=== PATIENT | female | born 1945 | race Caucasian/White ===

== ENCOUNTER 2017-01-10 08:48 | Day surgery (SDC) | payer MEDICARE ==
[2017-01-09 12:52] VITALS: BMI 35.0
[~2017-01-10 08:48] MED LIST: DEXAMETHASONE SOD PHOSPHATE 10 MG/ML 1 ML VIAL IV ONE; HEPARIN SODIUM,PORCINE 5,000 UNIT/ML 1 ML VIAL SQ ONE; HYDROmorphone 1 MG/ML 1 ML SYRINGE IVP PRN; LIDOCAINE 1% 20 ML VIAL (10MG/ML) FOR IV START INTRADERMA PRN; ONDANSETRON 4 MG/2 ML VIAL IVP ONE; ceFAZolin 2 GM in SODIUM CHLORIDE 0.9% 100 ML IVPB ONE
[2017-01-10] MEDS: LACTATED RINGERS 1,000 ML IV SCH (09:01)
[2017-01-10 09:24] LABS: Anisocytosis Slight; Basophils # (A) 0.1 k/uL (0-0.2); Basophils % (A) 1 %; CH 19.2; CHCM 27.4; Eosinophils # (A) 1.5 k/uL (0-0.7); Eosinophils % (A) 15 %; HCT 28.7 % (34.0-46.0); HDW 4.35; Hypochromasia Marked; Luc # (Auto) 0.19; Luc % (Auto) 2; Lymphocytes # (A) 2.2 k/uL (1.0-4.8); Lymphocytes % (A) 22 %; MCH 19.7 pg (25.0-35.0); MCHC 27.9 g/dL (31.0-37.0); MCV 70.9 fL (80.0-100.0); Mean Platelet Volume 6.8; Microcytosis Marked; Monocytes # (A) 0.4 k/uL (0-1.0); Monocytes % (A) 4 %; Neutrophils % (A) 57 %; Poikilocytosis Moderate; RBC 4.05 m/uL (3.80-5.40); RDW 18.5 % (11.5-15.5); WBC 10.4 k/uL (3.8-10.6); WBC (Perox) 10.31
[2017-01-10] MEDS ORDERED: PROPOFOL 10 MG/ML 20 ML VIAL IV ONE (09:29)
[2017-01-10] MEDS ORDERED: LIDOCAINE 1% INJ 10MG/ML (20 ML MDV) ONE (09:29)
[2017-01-10] MEDS ORDERED: GLYCOPYRROLATE 0.2 MG/ML 2 ML VIAL ONE (09:29)
[2017-01-10] MEDS ORDERED: NEOSTIGMINE 1 MG/ML 10 ML VIAL ONE (09:29)
[2017-01-10] MEDS ORDERED: ROCURONIUM BROMIDE 10 MG/ML 10 ML VIAL IV ONE (09:29)
[2017-01-10] MEDS ORDERED: fentaNYL (PF) 50 MCG/ML 2 ML AMP ONE (09:29)
[2017-01-10] MEDS ORDERED: MIDAZOLAM 2 MG/2 ML VIAL ONE (09:29)
--- NOTE | 2017-01-10 09:35 | P.GSHP ---
History of Present Illness H&P Date: 01/10/17 Chief Complaint: GERD This is a 71-year-old female who's had long-standing problems with GERD. She's had a recent EGD which shows evidence of a hiatal hernia and acid reflux.The patient has had long-standing problems with reflux esophagitis. The patient underwent recent EGD is found have evidence of esophagitis. Patient has been well informed on the procedure of laparoscopic Carlita fundoplication. The patient is aware the risk of the conversion to the open procedure, risk of injury to the stomach, liver and spleen. The patient is also a risk of recurrent GERD and dysphagia symptoms. The patient understands there is a postoperative diet of full liquids for 2 weeks after surgery. Past Medical History Past Medical History: GERD/Reflux, Musculoskeletal Disorder Additional Past Medical History / Comment(s): HIATAL HERNIA, GLAUCOMA, BACK PAIN - L-4 & L-5 DDD ., STATES BORDERLINE ANEMIA. History of Any Multi-Drug Resistant Organisms: None Reported Past Surgical History: Cholecystectomy Additional Past Surgical History / Comment(s): CATARACTS, SURGERY FOR REMOVAL OF BABY., EGD AND COLONOSCOPY. Past Anesthesia/Blood Transfusion Reactions: Previous Problems w/ Anesthesia Additional Past Anesthesia/Blood Transfusion Reaction / Comment(s): RECEIVED 2 UNITS OF BLOOD AFTER GALL BLADDER SURGERY. (NO REACTION). STATES DIFFICULTY WAKING UP AFTER CATARACT SURGERY. Past Psychological History: No Psychological Hx Reported Additional Psychological History / Comment(s): LIVES WITH HANDICAPPED SON. Smoking Status: Heavy tobacco smoker Past Alcohol Use History: None Reported Additional Past Alcohol Use History / Comment(s): SMOKES 1 PPD. SMOKING FOR 60 YEARS Past Drug Use History: None Reported - Past Family History Mother Family Medical History: Cancer Additional Family Medical History / Comment(s): ADENOCARCINOMA Brother(s) Family Medical History: Cancer Additional Family Medical History / Comment(s): BROTHER #1 OF ADENOCARCINOMA,. bROTHER #2 HAS CANCER ON THE OUTER COLON. Sister(s) Family Medical History: Cancer Additional Family Medical History / Comment(s): SISTER #1 INVASIVE DUCTAL BREAST CANCER. SISTER #2 ADDENO SQUAMOUS CARCINOMA Daughter(s) Family Medical History: Cancer Additional Family Medical History / Comment(s): DAUGHTER #1 DYSPLASIA INSITU CARCINOMA. DAUGHTER #2 MELANOMA. DAUGHTER #3 SQUAMOUS CELL CANCER Medications and Allergies Home Medications Medication Instructions Recorded Confirmed Type Aspirin [Adult Low Dose Aspirin EC] 81 mg PO DAILY 01/09/17 01/10/17 History Dantrolene [Dantrium] 25 mg PO QID 01/09/17 01/10/17 History Omeprazole 20 mg PO DAILY 01/09/17 01/10/17 History Allergies Allergy/AdvReac Type Severity Reaction Status Date / Time pregabalin [From Lyrica] AdvReac Unknown CANT SEE Verified 01/10/17 08:56 Surgical - Exam Vital Signs Temp Pulse Resp BP Pulse Ox 98.2 F 83 16 154/75 97 01/10/17 08:56 01/10/17 08:56 01/10/17 08:56 01/10/17 08:56 01/10/17 08:56 - General well developed, no distress - Eyes PERRL - ENT normal pinna - Neck no masses - Respiratory normal expansion - Cardiovascular Rhythm: regular - Abdomen Abdomen: soft, non tender Assessment and Plan Plan: GERD. We'll perform EGD colonoscopy
[2017-01-10] MEDS ORDERED: BUPIVACAINE-EPI 0.5%-1:200,000 10 ML VIAL SQ ONE (09:58)
[2017-01-10] MEDS ORDERED: BUPIVACAINE (PF) 0.5% 30 ML VIAL SQ ONE (09:58)
[2017-01-10] MEDS ORDERED: ONDANSETRON 4 MG/2 ML VIAL IVP PRN (10:56)
[2017-01-10] MEDS ORDERED: HYDROmorphone 1 MG/ML 1 ML SYRINGE IVP PRN (10:56)
--- NOTE | 2017-01-10 10:56 | P.OP ---
Date of Procedure: 01/10/17 Preoperative Diagnosis: GERD Large hiatal hernia Postoperative Diagnosis: Paraesophageal hernia Procedure(s) Performed: Laparoscopic repair of paraesophageal hernia Laparoscopic Carlita fundoplication Anesthesia: FAVIO Surgeon: Adan Pedroza Estimated Blood Loss (ml): 5 Pathology: none sent Condition: stable Disposition: PACU Description of Procedure: The patient was placed on the operating table in the supine position. The patient received general anesthesia. And was placed in dorsal lithotomy position. The patient was prepped and draped in the usual sterile fashion. The skin incision sites were anesthetized with 1% local Xylocaine. The skin was incised in the left periumbilical area and then using a blade less 5 mm trocar under direct visualization panel cavity was entered. After adequate insufflation the laparoscope was then placed into the peritoneal cavity. Next a 5 mm trochars placed in the right epigastric position. Another 5 millimeter trocar the right lateral position. Another 5 millimeter trocar in the left lateral position a 5 mm trocar is placed in the left epigastric position. And then the initial 5 mm trocar was exchanged for a 10 mm trocar. The left lateral lobe liver was retracted. The hernia was seen. The patient had a large hiatal hernia. It appeared to be a paraesophageal hernia with the stomach herniated above the GE junction. The crural defect was then dissected using the Harmonic scissors device. A 360 crural dissection was performed the esophagus stomach was reduced back into the peritoneal Cavity. The crural defect was then closed using 2-0 Ethibond suture. Next the fundus of the stomach was mobilized using the [place] scissors device. and then a 58-Azeri bougie dilator was placed oropharynx passed into the esophagus and stomach the fundal plication wrap was then performed by grasping the fundus posteriorly and bringing it around the esophagus and stomach fundoplication was then performed using 2-0 Ethibond suture. Next, the diaphragmatic repair was buttressed with bio a absorbable mesh. This was secured with 2-0 Ethibond suture. Care was taken that the fundal location rested over top of the intra-abdominal esophagus. There was no injury seen to the stomach or esophagus. The dilator was then withdrawn. The abdomen was irrigated there is no bleeding seen. The trochars were then withdrawn and then skin incision sites were closed using 3-0 Monocryl suture Steri-Strips are applied. Patient thought procedure well and sent to recovery room in stable condition.
[2017-01-10] MEDS: METOCLOPRAMIDE 5 MG/ML 2 ML VIAL IVP SCH ×3 (13:00→23:37)
[2017-01-10] MEDS: D5-0.45% NACL WITH KCL 20MEQ/L 1,000 ML IV SCH ×2 (13:04→20:19)
--- NOTE | 2017-01-10 14:20 | P.CONS ---
History of Present Illness - Reason for Consult Consult date: 01/10/17 Preoperative complication management - History of Present Illness Patient is a very pleasant 71-year-old female with history of gastroesophageal reflux disease and hiatal hernia admitted for Mrs. fundoplication. Patient's is successfully underwent surgery still coming out of anesthesia denied any significant pain or nausea at this time. Patient denied any fever, chills, nausea, vomiting but as mentioned above not a real good historian as she just coming out of anesthesia and still drowsy Review of Systems REVIEW OF SYSTEMS: CONSTITUTIONAL: No fever, no malaise, no fatigue. HEENT: No recent visual problems or hearing problems. Denied any sore throat. CARDIOVASCULAR: No chest pain, orthopnea, PND, no palpitations, no syncope. PULMONARY: No shortness of breath, no cough, no hemoptysis. GASTROINTESTINAL: No diarrhea, no nausea, no vomiting, no abdominal pain. Normoactive bowel sounds. NEUROLOGICAL: No headaches, no weakness, no numbness. HEMATOLOGICAL: Denies any bleeding or petechiae. GENITOURINARY: Denies any burning micturition, frequency, or urgency. MUSCULOSKELETAL/RHEUMATOLOGICAL: Denies any joint pain, swelling, or any muscle pain. ENDOCRINE: Denies any polyuria or polydipsia. The rest of the 14-point review of systems is negative. Past Medical History Past Medical History: GERD/Reflux, Musculoskeletal Disorder Additional Past Medical History / Comment(s): HIATAL HERNIA, GLAUCOMA, BACK PAIN - L-4 & L-5 DDD ., STATES BORDERLINE ANEMIA. History of Any Multi-Drug Resistant Organisms: None Reported Past Surgical History: Cholecystectomy Additional Past Surgical History / Comment(s): CATARACTS, SURGERY FOR REMOVAL OF BABY., EGD AND COLONOSCOPY. Past Anesthesia/Blood Transfusion Reactions: Previous Problems w/ Anesthesia Additional Past Anesthesia/Blood Transfusion Reaction / Comm: RECEIVED 2 UNITS OF BLOOD AFTER GALL BLADDER SURGERY. (NO REACTION). STATES DIFFICULTY WAKING UP AFTER CATARACT SURGERY. Past Psychological History: No Psychological Hx Reported Additional Psychological History / Comment(s): LIVES WITH HANDICAPPED SON. Smoking Status: Heavy tobacco smoker Past Alcohol Use History: None Reported Additional Past Alcohol Use History / Comment(s): SMOKES 1 PPD. SMOKING FOR 60 YEARS Past Drug Use History: None Reported - Past Family History Mother Family Medical History: Cancer Additional Family Medical History / Comment(s): ADENOCARCINOMA Brother(s) Family Medical History: Cancer Additional Family Medical History / Comment(s): BROTHER #1 OF ADENOCARCINOMA,. bROTHER #2 HAS CANCER ON THE OUTER COLON. Sister(s) Family Medical History: Cancer Additional Family Medical History / Comment(s): SISTER #1 INVASIVE DUCTAL BREAST CANCER. SISTER #2 ADDENO SQUAMOUS CARCINOMA Daughter(s) Family Medical History: Cancer Additional Family Medical History / Comment(s): DAUGHTER #1 DYSPLASIA INSITU CARCINOMA. DAUGHTER #2 MELANOMA. DAUGHTER #3 SQUAMOUS CELL CANCER Medications and Allergies Home Medications Medication Instructions Recorded Confirmed Type Aspirin [Adult Low Dose Aspirin EC] 81 mg PO DAILY 01/09/17 01/10/17 History Dantrolene [Dantrium] 25 mg PO QID 01/09/17 01/10/17 History Omeprazole 20 mg PO DAILY 01/09/17 01/10/17 History Allergies Allergy/AdvReac Type Severity Reaction Status Date / Time pregabalin [From Lyrica] AdvReac Unknown CANT SEE Verified 01/10/17 08:56 Physical Exam Vitals: Vital Signs Temp Pulse Resp BP Pulse Ox 01/10/17 12:00 87 16 133/66 97 01/10/17 11:45 86 16 138/58 100 01/10/17 11:30 85 16 154/50 100 01/10/17 11:15 87 16 157/70 100 01/10/17 11:00 86 16 157/86 100 01/10/17 10:55 97.7 F 84 14 151/62 100 01/10/17 08:56 98.2 F 83 16 154/75 97 Intake and Output 01/09/17 01/10/17 01/10/17 22:59 06:59 14:59 Intake Total 400 Output Total 10 Balance 390 Intake: IV 400 Output: Estimated Blood Loss 10 PHYSICAL EXAMINATION: GENERAL: The patient is alert and oriented x3, not in any acute distress. Well developed, well nourished. Drowsy from anesthesia HEENT: Pupils are round and equally reacting to light. EOMI. No scleral icterus. No conjunctival pallor. Normocephalic, atraumatic. No pharyngeal erythema. No thyromegaly. CARDIOVASCULAR: S1 and S2 present. No murmurs, rubs, or gallops. PULMONARY: Chest is clear to auscultation, no wheezing or crackles. ABDOMEN: Soft, nontender, nondistended, normoactive bowel sounds. No palpable organomegaly. MUSCULOSKELETAL: No joint swelling or deformity. EXTREMITIES: No cyanosis, clubbing, or pedal edema. NEUROLOGICAL: Gross neurological examination did not reveal any focal deficits. SKIN: No rashes. Results CBC & Chem 7: 01/10/17 09:12 Labs: Abnormal Lab Results - Last 24 Hours (Table) 01/10/17 Range/Units 09:12 Hgb 8.0 L (11.4-16.0) gm/dL Hct 28.7 L (34.0-46.0) % MCV 70.9 L (80.0-100.0) fL MCH 19.7 L (25.0-35.0) pg MCHC 27.9 L (31.0-37.0) g/dL RDW 18.5 H (11.5-15.5) % Plt Count 501 H (150-450) k/uL Eosinophils # 1.5 H (0-0.7) k/uL Assessment and Plan Plan: #1 postoperative day 0 status post Carlita fundoplication: Pain management as per primary service and nausea management as per primary service patient does not appear to have any significant complications no further recommendation from medicine perspective. #2 muscle spasms for which patient isn't answering which can be continued #3 gastroesophageal reflux disease Thank you for letting me partis but in this patient's care will continue to follow the patient on as-needed basis.
--- NOTE | 2017-01-10 15:28 | FL ---
Single contrast esophagram EXAMINATION TYPE: FL esophagus cervic/pharynx DATE OF EXAM: 01/10/2017 3:23 PM COMPARISON: NONE CLINICAL HISTORY: Status post Martin fundoplication 6 images submitted.55 sec fluoro, 50ML omni 350. The patient ingested contrast without difficulty. Noted are changes of Martin fundoplication. There is no evidence for leak or obstruction. Mild stasis of contrast within the distal esophagus related t o edema at the surgical site. Small amount of residual contrast within the distal esophagus. IMPRESSION: Post-surgical change of Martin fundoplication without evidence for leak or obstruction. Mild stasis of contrast distal esophagus as noted.
[2017-01-10] MEDS: DANTROLENE 25 MG CAP PO SCH ×2 (17:51→21:51)
[2017-01-10] MEDS: FAMOTIDINE 20 MG/2 ML VIAL IV SCH (20:20)
[2017-01-11] MEDS: METOCLOPRAMIDE 5 MG/ML 2 ML VIAL IVP SCH ×2 (05:52→12:36)
[2017-01-11] MEDS: D5-0.45% NACL WITH KCL 20MEQ/L 1,000 ML IV SCH ×2 (05:52→12:35)
[2017-01-11] MEDS: LACTATED RINGERS 1,000 ML IV SCH (07:04)
[2017-01-11 08:09] VITALS: BP 120/62; PULSE 69; RESP 17; TEMP 98
[2017-01-11] MEDS ORDERED: ENOXAPARIN 40 MG/0.4 ML SYRINGE SQ SCH (09:00)
[2017-01-11] MEDS: FAMOTIDINE 20 MG/2 ML VIAL IV SCH (09:53)
[2017-01-11] MEDS: DANTROLENE 25 MG CAP PO SCH ×2 (09:53→14:12)
--- NOTE | 2017-01-11 12:34 | P.DS ---
Providers Expected date of discharge: 01/11/17 Attending physician: Adan Pedroza Consults: 01/10/17 10:56 Consult Physician Routine Consulting Provider: Darien Enriquez Consult Reason/Comments: Medical management Do you want consulting provider notified?: Yes Hospital Course: This is a 71-year-old female who's had long-standing problems with GERD. She's had a recent EGD which shows evidence of a hiatal hernia and acid reflux.The patient has had long-standing problems with reflux esophagitis. The patient underwent recent EGD is found have evidence of esophagitis. Patient has been well informed on the procedure of laparoscopic Carlita fundoplication. The patient is aware the risk of the conversion to the open procedure, risk of injury to the stomach, liver and spleen. The patient is also a risk of recurrent GERD and dysphagia symptoms. The patient understands there is a postoperative diet of full liquids for 2 weeks after surgery. on jan 10 underwent Laparoscopic Carlita fundoplication for a large hiatal hernia and symptomatic esophageal reflux postop was tolerating clear liquid up ambulating in the hallway passing gas rectally no stool anxious for discharge understood needing to be on full liquids for 2 weeks until seen in a follow-up visit Impression discharge diagnosis Status post January 10 Laparoscopic Carlita fundoplication for a large hiatal hernia and esophageal reflux disease Paraesophageal hernia Symptomatic esophageal reflux disease failed outpatient treatment The above impression and plan of care have been discussed and directed by signing physician. Roselia Rojo nurse practitioner acting as scribe for signing physician. Plan - Discharge Summary New Discharge Prescriptions: Discontinued Omeprazole 20 mg PO DAILY No Action Dantrolene [Dantrium] 25 mg PO QID Aspirin [Adult Low Dose Aspirin EC] 81 mg PO DAILY Discharge Medication List Aspirin [Adult Low Dose Aspirin EC] 81 mg PO DAILY 01/09/17 [History] Dantrolene [Dantrium] 25 mg PO QID 01/09/17 [History] Follow up Appointment(s)/Referral(s): Adan Pedroza MD [STAFF PHYSICIAN] - 1 Week Activity/Diet/Wound Care/Special Instructions: full liquids diet for 2 weeks after surgery no straws Discharge Disposition: HOME SELF-CARE
--- NOTE | 2017-01-11 15:50 | P.PN ---
Subjective No significant eagleovernight events and patient is clinically doing well and patient can be discharged from medical perspective. Objective - Vital Signs Vital signs: Vital Signs Temp 98.0 F 01/11/17 07:00 Pulse 69 01/11/17 07:00 Resp 17 01/11/17 07:00 BP 120/62 01/11/17 07:00 Pulse Ox 100 01/11/17 07:00 Intake & Output 01/10/17 01/11/17 01/11/17 18:59 06:59 18:59 Intake Total 1000 1650 Output Total 10 700 Balance 990 950 Weight 92.533 kg Intake: IV 400 Intake, IV Titration 500 1250 Amount D5-0.45% NaCl with KCl 500 1250 20Meq/l 1,000 ml @ 125 mls/hr IV .Q8H J CARLOS Rx#: [id number] Oral 100 400 Output: Urine 700 Estimated Blood Loss 10 Other: # Voids 2 2 - Exam PHYSICAL EXAMINATION: GENERAL: The patient is alert and oriented x3, not in any acute distress. Well developed, well nourished. HEENT: Pupils are round and equally reacting to light. EOMI. No scleral icterus. No conjunctival pallor. Normocephalic, atraumatic. No pharyngeal erythema. No thyromegaly. CARDIOVASCULAR: S1 and S2 present. No murmurs, rubs, or gallops. PULMONARY: Chest is clear to auscultation, no wheezing or crackles. ABDOMEN: Soft, nontender, nondistended, normoactive bowel sounds. No palpable organomegaly. MUSCULOSKELETAL: No joint swelling or deformity. EXTREMITIES: No cyanosis, clubbing, or pedal edema. NEUROLOGICAL: Gross neurological examination did not reveal any focal deficits. SKIN: No rashes. - Labs CBC & Chem 7: 01/10/17 09:12 Assessment and Plan Plan: #1 postoperative day 0 status post Carlita fundoplication: Pain management as per primary service and nausea management as per primary service patient does not appear to have any significant complications no further recommendation from medicine perspective. #2 muscle spasms for which patient isn't answering which can be continued #3 gastroesophageal reflux disease Patient is medically cleared to be discharged
== END 2017-01-11 14:08 | disposition home or self-care (01) ==
LOC: OR 08:48 → 3SUR 10:55 → OR 01-11 14:08
PROVIDERS: ATTEND Surgery
DX: K44.9 Diaphragmatic hernia without obstruction or gangrene (principal); K21.0 Gastro-esophageal reflux disease with esophagitis; Z80.0 Family history of malignant neoplasm of digestive organs; Z79.82 Long term (current) use of aspirin; Z79.899 Other long term (current) drug therapy; Z91.09 Other allergy status, other than to drugs and biological substances
CPT/HCPCS: 74210; 85025; 93005